=== PATIENT | male | born 1975 | race American Indian/Alaskan Native ===

== ENCOUNTER 2017-07-12 01:16 | Emergency (ER) | payer OTHER, BC ==
[2017-07-12 01:25] VITALS: BP 147/97
--- NOTE | 2017-07-12 04:19 | Emergency Department Report ---
HPI - General Chief Complaint: Pain General Time Seen by Provider: 07/12/17 03:21 - HPI HPI: This is a 42-year-old male with no prior medical history who presents to ED complaining of lower back and bilateral upper back pain does feel worsened since his injury 2 years ago. Patient states he was at work today lifting and opening some boxes when he felt the pain in his back get worse. Patient states he's been dealing with this for the past 2 years after his head injury at work 2 years ago. Patient states he was was a good MRI today but had it rescheduled. Patient denies falling or any recent trauma while at work. Patient states pain localized to the lower back and radiates to his thighs. Patient states the pain is throbbing aching tingling sensation has worsened with change in his activities. ED Past Medical Hx - Past Medical History Previous Medical History?: Yes Additional medical history: head/neck injury 2014, chronic neck/shoulder pain since injury - Surgical History Past Surgical History?: No - Social History Smoking Status: Never Smoker Substance Use Type: None - Medications Home Medications: Home Medications Medication Instructions Recorded Confirmed Last Taken Type Gabapentin [Neurontin] 300 mg PO BID #30 cap 07/12/17 Unknown Rx Tizanidine HCl [Zanaflex] 2 mg PO BID PRN #24 capsule 07/12/17 Unknown Rx ED Review of Systems ROS: Stated complaint: LEG PAIN INJURY AT WORK Other details as noted in HPI Constitutional: denies: chills, fever Eyes: denies: eye pain, eye discharge, vision change ENT: denies: ear pain, throat pain Respiratory: denies: cough, shortness of breath, wheezing Cardiovascular: denies: chest pain, palpitations Endocrine: no symptoms reported Gastrointestinal: denies: abdominal pain, nausea, diarrhea Genitourinary: denies: urgency, dysuria Musculoskeletal: back pain, arthralgia, myalgia. denies: joint swelling Skin: denies: rash, lesions Neurological: denies: headache, weakness, numbness, paresthesias, confusion Psychiatric: denies: anxiety, depression Hematological/Lymphatic: denies: easy bleeding, easy bruising Physical Exam - Physical Exam Vital Signs: Vital Signs 07/12/17 07/12/17 01:19 02:03 Temperature 99.0 F 99 F Pulse Rate 97 H 97 H Respiratory 18 18 Rate Blood Pressure 147/97 147/97 O2 Sat by Pulse 99 99 Oximetry Physical Exam: GENERAL: Alert and oriented x3, no apparent distress, Normal Gait, atraumatic. HEAD: Head is normocephalic and a-traumatic. EYES: Extra ocular muscles are intact. Pupils are equal, round, and reactive to light and accommodation. NECK: Supple. Non edematous, No carotid bruits. No lymphadenopathy or thyromegaly. No C-spine tenderness. full range of motion with mild pain LUNGS: Symetrical with respiration, No wheezing, no rales or crackles, CTAB. HEART: S1, S2 present, regular rate and rhythm without murmur, no rubs, no gallops. Non tender to palpation BACK: Full range of motion, no spinal tenderness, nontender to palpation. EXTREMITIES/MUSCULOSKELETAL: No cyanosis, clubbing, rash, lesions or edema. Full ROM bilaterally. UE/LE Pulses 2+ bilaterally. LE and UE 5+ strength bilaterally, straight leg raise positivetive bilaterally NEUROLOGIC: The patient is cooperative with no focal neurologic deficits. Cranial nerves II through XII are grossly intact. Normal speech. Normal sensation in bilateral upper and lower extremities, SKIN: Warm and dry, No lesions, No ulceration or induration present. ED Course Vital Signs 07/12/17 07/12/17 01:19 02:03 Temperature 99.0 F 99 F Pulse Rate 97 H 97 H Respiratory 18 18 Rate Blood Pressure 147/97 147/97 O2 Sat by Pulse 99 99 Oximetry ED Medical Decision Making - Medical Decision Making 42-year-old male presents to ED with lumbar radiculopathy with sciatica ED course: Patient received 1 tablet of Helotes in ED. Vital signs are normal patient is in no acute distress. I discussed with the patient and chronic pain aggravated with strenuous activities and need for rest and proper management. I discussed the patient himself and that he'll be given referrals to see a neurologist and orthopedic to follow-up and get a second opinion. Since patient states that the worker's comp doctors that he has been referred to have not really been helping him out. Discussed with patient follow-up with primary care physician. Discussed the patient and take medications as prescribed. Patient has no neurological deficit. Patient is alert and oriented 3 and understands all instructions given. I discussed the patient hit therapy 3 times a day Critical care attestation.: If time is entered above; I have spent that time in minutes in the direct care of this critically ill patient, excluding procedure time. ED Disposition Clinical Impression: Lumbar pain with radiation down both legs, Myalgia Disposition: TO HOME OR SELFCARE Is pt being admited?: No Does the pt Need Aspirin: No Condition: Stable Instructions: Meniere Disease (ED), Sciatica (ED), Trigger Point Pain (ED), Lumbar Radiculopathy (ED), Musculoskeletal Pain (ED) Additional Instructions: Make sure to follow up with the primary care physician as discussed. Take all your medications as you've been prescribed. If you have any worsening symptoms or develop new symptoms please return to ED immediately. Prescriptions: Gabapentin [Neurontin] 300 mg PO BID #30 cap Tizanidine HCl [Zanaflex] 2 mg PO BID PRN #24 capsule PRN Reason: Muscle Spasm Referrals: BRY HAJI MD [Primary Care Provider] - 3-5 Days LAMIN BONILLA MD [Staff Physician] - 3-5 Days [facility] [Provider Group] - 3-5 Days [facility] [Provider Group] - 3-5 Days [facility] [Provider Group] - 3-5 Days Forms: Accompanied Note, Work/School Release Form(ED) Time of Disposition: 04:27
[2017-07-12] MEDS: NORCO 5/325 PO ONE (04:23)
== END 2017-07-12 05:07 | disposition home or self-care (01) ==
LOC: ED 01:16
DX: M54.5 Low back pain (principal); M79.1 Myalgia; Z91.013 Allergy to seafood; Z91.018 Allergy to other foods
CPT/HCPCS: 99282